=== PATIENT | male | born 1950 | race Caucasian/White ===

== ENCOUNTER 2017-08-14 14:43 | Inpatient (IN) | payer OTHER ==
[~2017-08-14] VITALS: Ht 170.2 cm; Wt 127.9 kg
[~2017-08-14 14:43] MED LIST: ALDACTONE25 MG PO; AMARYL2 MG PO; BREO ELLIPTA I1 EACH IH; COREG25 M1 PO; CRESTOR10 MG PO; GLIMEPIRIDE4 MG PO; LIPITOR20 MG PO; LISINOPRIL20 MG PO; LO-DOSE ASPIRIN81 M1 PO; METFORMIN HCL1000 MG PO; METOPROLOL TART50 MG PO; PIOGLITAZONE HC45 MG PO; ZESTRIL40 MG PO
[2017-08-14 17:06] LABS: BASOPHIL (%) 0.5 % (0-1); BASOPHIL COUNT 0.1 K/uL (0-0.1); EOSINOPHIL (%) 2.6 % (0-5); EOSINOPHIL COUNT 0.3 K/uL (0-0.3); HEMATOCRIT 44.3 % (38.0-50.0); HEMOGLOBIN 14.9 G/DL (12.5-16.6); IMMATURE GRANULOCYTE (%) 0.5 % (0.0-0.7); LYMPHOCYTE (%) 26.2 % (15-42); LYMPHOCYTE COUNT 2.6 K/uL (1.0-2.8); MCH 29.7 PG (29.0-34.0); MCHC 33.6 G/DL (30.0-36.0); MCV 88.4 FL (86-99); MONOCYTE (%) 8.3 % (3-12); MONOCYTE COUNT 0.8 K/uL (0-0.8); NEUTROPHIL (%) 61.9 % (45-76); PLATELET COUNT 191 K/uL (156-360); RBC DIS.WIDTH-CV 15.3 % (11.8-14.6); RBC DIS.WIDTH-SD 49.2 % (39-53); RED BLOOD COUNT 5.01 M/uL (4.00-5.50); WHITE BLOOD COUNT 9.8 K/uL (4.1-10.2)
[2017-08-14 17:13] LABS: ALBUMIN 3.9 g/dL (3.2-4.8)
[2017-08-14 17:14] LABS: CHLORIDE 105 mEq/L (99-109); POTASSIUM 5.1 mEq/L (3.7-5.4); SODIUM 140 mEq/L (136-147)
[2017-08-14 17:16] LABS: GLUCOSE 94 mg/dL (70-99); TOTAL PROTEIN 7.6 g/dL (6.4-8.3)
[2017-08-14 17:18] LABS: TOTAL BILIRUBIN 0.9 mg/dL (0.0-1.0)
[2017-08-14 17:19] LABS: ALKALINE PHOSPHATASE 44 IU/L (3-129)
[2017-08-14 17:20] LABS: CREATININE 1.5 mg/dL (0.6-1.3); GFR ESTIMATE (CALCULATED) 50 mL/min/ (58.99-99999)
[2017-08-14 17:21] LABS: AST (GOT) 30 IU/L (2-34); UREA NITROGEN (BUN) 31 mg/dL (9-23)
[2017-08-14 17:22] LABS: ALT (GPT) 29 IU/L (3-49)
[2017-08-14] MEDS ORDERED: ATORVASTATIN CA40 MG PO (22:08)
[2017-08-14] MEDS ORDERED: GLIMEPIRIDE2 MG PO (22:08)
[2017-08-14] MEDS ORDERED: CARVEDILOL25 MG PO (22:09)
[2017-08-14] MEDS ORDERED: LISINOPRIL40 MG PO (22:09)
[2017-08-14] MEDS ORDERED: SPIRONOLACTONE25 MG PO (22:09)
[2017-08-14] MEDS ORDERED: INCRUSE ELLI62.5 MCG IH (22:10)
[2017-08-14 23:23] VITALS: BP 130/76
[2017-08-15 00:41] LABS: COMMENTS - BLOOD GASES C+; DEVICE HFNC; O2 FLOW 10 L/MIN; PCO2 35 mm Hg (35-45); PO2 58 mm Hg (80-100); SITE RR; pH 7.42 (7.35-7.45)
[2017-08-15 00:42] LABS: BASE EXCESS -1.2 mEq/L (-3 to +3); BICARBONATE 22.7 mEq/L (22-26); CARBOXY HGB 1.4 % (0-5); METHEMOGLOBIN 1.7 % (0-1.5); O2 SATURATION (CALCULATED) 91.3 % (95-99)
[2017-08-15 04:36] VITALS: BP 115/56
[2017-08-15 07:55] VITALS: BP 110/69
[2017-08-15 08:53] LABS: CHLORIDE 103 MEQ/L (99-109); CREATININE 1.1 MG/DL (0.6-1.3); GFR ESTIMATE (CALCULATED) > 59 mL/min/ (58.99-99999); GLUCOSE 94 mg/dL (70-99); SODIUM 138 MEQ/L (136-147); UREA NITROGEN (BUN) 25 mg/dL (9-23)
[2017-08-15 13:12] VITALS: BP 116/58
[2017-08-15 16:15] VITALS: BP 131/78
[2017-08-15 19:37] VITALS: BP 118/73
[2017-08-16 00:01] VITALS: BP 90/44
[2017-08-16 09:07] VITALS: BP 107/52
[2017-08-16 10:30] LABS: BASE EXCESS -2.9 mEq/L (-3 to +3); CARBOXY HGB 1.6 % (0-5); METHEMOGLOBIN 0.5 % (0-1.5); PCO2 38 mm Hg (35-45); PO2 49 mm Hg (80-100); pH 7.37 (7.35-7.45)
[2017-08-16 10:31] LABS: COMMENTS - BLOOD GASES A+C+; DEVICE NCH; O2 FLOW 6 L/MIN; SITE RR; TOTAL RESP RATE 20 resp/min
[2017-08-16 10:55] LABS: HEMATOCRIT 42.7 % (38.0-50.0); HEMOGLOBIN 14.2 G/DL (12.5-16.6); MCH 29.3 PG (29.0-34.0); MCHC 33.3 G/DL (30.0-36.0); PLATELET COUNT 169 K/uL (156-360); RBC DIS.WIDTH-CV 15.7 % (11.8-14.6); RBC DIS.WIDTH-SD 50.4 % (39-53); RED BLOOD COUNT 4.85 M/uL (4.00-5.50); WHITE BLOOD COUNT 7.4 K/uL (4.1-10.2)
[2017-08-16 11:09] LABS: D-DIMER ELISA < 150.00 ng/mLDDU (<230)
[2017-08-16 11:17] LABS: TROP-I INTERPRETATION NEGATIVE; TROPONIN-I 0.01 ng/mL (0.0-0.30)
[2017-08-16 11:30] LABS: CHLORIDE 105 MEQ/L (99-109); CREATININE 1.3 MG/DL (0.6-1.3); GFR ESTIMATE (CALCULATED) 59 mL/min/ (58.99-99999); POTASSIUM 5.2 MEQ/L (3.7-5.4); SODIUM 133 MEQ/L (136-147); UREA NITROGEN (BUN) 30 mg/dL (9-23)
[2017-08-16 11:31] LABS: GLUCOSE 188 mg/dL (70-99)
[2017-08-16 11:34] VITALS: BP 118/56
[2017-08-16 13:59] LABS: HEMOGLOBIN A1c (GLYCOHEMOGLOB) 6.1 % (Below 5.7)
[2017-08-16 14:58] VITALS: BP 127/59
[2017-08-16 17:52] LABS: TROP-I INTERPRETATION NEGATIVE; TROPONIN-I < 0.01 ng/mL (0.0-0.30)
[2017-08-16 19:54] VITALS: BP 126/60
[2017-08-16 23:35] LABS: TROP-I INTERPRETATION NEGATIVE; TROPONIN-I < 0.01 ng/mL (0.0-0.30)
[2017-08-17] VITALS (7 sets, daily range): BP systolic 105–137; BP diastolic 54–82
[2017-08-17 05:16] LABS: BASOPHIL (%) 0.1 % (0-1); EOSINOPHIL (%) 0 % (0-5); HEMATOCRIT 40.5 % (38.0-50.0); HEMOGLOBIN 13.7 G/DL (12.5-16.6); IMMATURE GRANULOCYTE (%) 0.8 % (0.0-0.7); LYMPHOCYTE (%) 15.9 % (15-42); LYMPHOCYTE COUNT 1.2 K/uL (1.0-2.8); MCH 29.5 PG (29.0-34.0); MCHC 33.8 G/DL (30.0-36.0); MCV 87.1 FL (86-99); MONOCYTE (%) 0.7 % (3-12); MONOCYTE COUNT 0.1 K/uL (0-0.8); NEUTROPHIL (%) 82.5 % (45-76); NEUTROPHIL COUNT 6.3 K/uL (1.8-6.4); PLATELET COUNT 167 K/uL (156-360); RBC DIS.WIDTH-CV 15.3 % (11.8-14.6); RBC DIS.WIDTH-SD 48.8 % (39-53); RED BLOOD COUNT 4.65 M/uL (4.00-5.50); WHITE BLOOD COUNT 7.7 K/uL (4.1-10.2)
[2017-08-17 05:54] LABS: ALBUMIN 3.7 G/DL (3.2-4.8); ALKALINE PHOSPHATASE 34 IU/L (3-129); ALT (GPT) 22 IU/L (3-49); AST (GOT) 20 IU/L (2-34); CHLORIDE 101 MEQ/L (99-109); CREATININE 1.3 MG/DL (0.6-1.3); GFR ESTIMATE (CALCULATED) 59 mL/min/ (58.99-99999); GLUCOSE 211 mg/dL (70-99); POTASSIUM 5.5 MEQ/L (3.7-5.4); SODIUM 132 MEQ/L (136-147); TOTAL BILIRUBIN 0.7 MG/DL (0.0-1.0); TOTAL PROTEIN 6.7 G/DL (6.4-8.3); UREA NITROGEN (BUN) 34 mg/dL (9-23)
[2017-08-18 04:05] VITALS: BP 132/77
[2017-08-18 07:57] VITALS: BP 142/67
[2017-08-18 12:00] VITALS: BP 123/72
[2017-08-18 12:33] LABS: ALBUMIN 3.8 G/DL (3.2-4.8); ALKALINE PHOSPHATASE 31 IU/L (3-129); ALT (GPT) 25 IU/L (3-49); AST (GOT) 22 IU/L (2-34); CHLORIDE 100 MEQ/L (99-109); CREATININE 1.1 MG/DL (0.6-1.3); GFR ESTIMATE (CALCULATED) > 59 mL/min/ (58.99-99999); GLUCOSE 209 mg/dL (70-99); POTASSIUM 4.5 MEQ/L (3.7-5.4); SODIUM 135 MEQ/L (136-147); TOTAL PROTEIN 7.4 G/DL (6.4-8.3); UREA NITROGEN (BUN) 33 mg/dL (9-23)
[2017-08-18 12:34] LABS: TOTAL BILIRUBIN 0.5 MG/DL (0.0-1.0)
[2017-08-18 17:32] VITALS: BP 142/69
[2017-08-18 19:30] VITALS: BP 119/73
[2017-08-19] VITALS (7 sets, daily range): BP systolic 116–152; BP diastolic 65–71
[2017-08-19 05:15] LABS: BASOPHIL (%) 0.1 % (0-1); EOSINOPHIL (%) 0 % (0-5); HEMATOCRIT 40.1 % (38.0-50.0); HEMOGLOBIN 13.5 G/DL (12.5-16.6); IMMATURE GRANULOCYTE (%) 0.8 % (0.0-0.7); LYMPHOCYTE (%) 10.7 % (15-42); LYMPHOCYTE COUNT 1.2 K/uL (1.0-2.8); MCH 29.3 PG (29.0-34.0); MCHC 33.7 G/DL (30.0-36.0); MCV 87.2 FL (86-99); MONOCYTE (%) 3.8 % (3-12); MONOCYTE COUNT 0.4 K/uL (0-0.8); NEUTROPHIL (%) 84.6 % (45-76); NEUTROPHIL COUNT 9.8 K/uL (1.8-6.4); PLATELET COUNT 185 K/uL (156-360); RBC DIS.WIDTH-CV 15.1 % (11.8-14.6); RBC DIS.WIDTH-SD 48.1 % (39-53); WHITE BLOOD COUNT 11.6 K/uL (4.1-10.2)
[2017-08-19 05:58] LABS: CHLORIDE 101 MEQ/L (99-109); CREATININE 1.1 MG/DL (0.6-1.3); GFR ESTIMATE (CALCULATED) > 59 mL/min/ (58.99-99999); GLUCOSE 245 mg/dL (70-99); POTASSIUM 4.5 MEQ/L (3.7-5.4); SODIUM 134 MEQ/L (136-147); UREA NITROGEN (BUN) 37 mg/dL (9-23)
[2017-08-19 08:49] LABS: CREATINE KINASE 93 IU/L (1-294)
[2017-08-20] VITALS (8 sets, daily range): BP systolic 110–140; BP diastolic 61–77
[2017-08-20 05:17] LABS: HEMATOCRIT 43.3 % (38.0-50.0); HEMOGLOBIN 14.4 G/DL (12.5-16.6); MCH 29.1 PG (29.0-34.0); MCHC 33.3 G/DL (30.0-36.0); MCV 87.7 FL (86-99); PLATELET COUNT 190 K/uL (156-360); RBC DIS.WIDTH-SD 47.8 % (39-53); RED BLOOD COUNT 4.94 M/uL (4.00-5.50); WHITE BLOOD COUNT 11.4 K/uL (4.1-10.2)
[2017-08-20 05:52] LABS: CHLORIDE 99 MEQ/L (99-109); CREATININE 1.3 MG/DL (0.6-1.3); GFR ESTIMATE (CALCULATED) 59 mL/min/ (58.99-99999); GLUCOSE 199 mg/dL (70-99); POTASSIUM 4.4 MEQ/L (3.7-5.4); SODIUM 136 MEQ/L (136-147); UREA NITROGEN (BUN) 38 mg/dL (9-23)
[2017-08-21] VITALS (7 sets, daily range): BP systolic 110–131; BP diastolic 55–60
[2017-08-22 05:12] LABS: HEMATOCRIT 42.4 % (38.0-50.0); HEMOGLOBIN 14.3 G/DL (12.5-16.6); MCH 29.2 PG (29.0-34.0); MCHC 33.7 G/DL (30.0-36.0); MCV 86.7 FL (86-99); PLATELET COUNT 185 K/uL (156-360); RED BLOOD COUNT 4.89 M/uL (4.00-5.50); WHITE BLOOD COUNT 12.1 K/uL (4.1-10.2)
[2017-08-22 05:17] VITALS: BP 101/55
[2017-08-22 05:46] LABS: CHLORIDE 101 MEQ/L (99-109); CREATININE 1.3 MG/DL (0.6-1.3); GFR ESTIMATE (CALCULATED) 59 mL/min/ (58.99-99999); GLUCOSE 136 mg/dL (70-99); MAGNESIUM 1.9 mg/dl (1.3-2.7); POTASSIUM 4.6 MEQ/L (3.7-5.4); SODIUM 137 MEQ/L (136-147); UREA NITROGEN (BUN) 41 mg/dL (9-23)
[2017-08-22 07:24] VITALS: BP 102/51
[2017-08-22 12:22] VITALS: BP 105/54
[2017-08-22] MEDS ORDERED: DUONEB 2.5-0.5 M3 ML AEROSOL (13:45)
[2017-08-22] MEDS ORDERED: PREDNISONE20 MG PO (13:47)
[2017-08-22] MEDS ORDERED: FUROSEMIDE20 MG PO (13:47)
== END 2017-08-22 16:54 | DRG 189 ==
LOC: EME 14:43 → 4SOUTH 21:53 → EDOF 21:53 → ENRESERV 21:55 → 4SOUTH 23:08 → 4EAST 08-16 09:31 → ENRESERV 08-16 09:37 → 4EAST 08-16 11:15
PROVIDERS: Emergency Medicine; Hospitalist; Internal Medicine; Physician Assistant Medical; Student in an Organized Health Care Education/Training Program
PROC: 5A09357 Assistance with Respiratory Ventilation, Less than 24 Consecutive Hours, Continuous Positive Airway Pressure (ICD-10-PCS; principal; 2017-08-15)
DX: J96.21 Acute and chronic respiratory failure with hypoxia (principal); J81.0 Acute pulmonary edema; J44.0 Chronic obstructive pulmonary disease with (acute) lower respiratory infection; I42.9 Cardiomyopathy, unspecified; N17.9 Acute kidney failure, unspecified; I50.22 Chronic systolic (congestive) heart failure; J44.1 Chronic obstructive pulmonary disease with (acute) exacerbation; Z68.42 Body mass index [BMI] 45.0-49.9, adult; X50.0XXA Overexertion from strenuous movement or load, initial encounter; G57.21 Lesion of femoral nerve, right lower limb; G47.33 Obstructive sleep apnea (adult) (pediatric); E66.01 Morbid (severe) obesity due to excess calories; I25.10 Atherosclerotic heart disease of native coronary artery without angina pectoris; T38.0X5A Adverse effect of glucocorticoids and synthetic analogues, initial encounter; E11.65 Type 2 diabetes mellitus with hyperglycemia; E78.5 Hyperlipidemia, unspecified; E87.5 Hyperkalemia; G89.29 Other chronic pain; I11.0 Hypertensive heart disease with heart failure; I27.20 Pulmonary hypertension, unspecified; R29.6 Repeated falls; I44.7 Left bundle-branch block, unspecified; M48.04 Spinal stenosis, thoracic region; M47.26 Other spondylosis with radiculopathy, lumbar region; M51.24 Other intervertebral disc displacement, thoracic region; S80.211A Abrasion, right knee, initial encounter; S80.212A Abrasion, left knee, initial encounter; Y93.01 Activity, walking, marching and hiking; J20.9 Acute bronchitis, unspecified; E11.42 Type 2 diabetes mellitus with diabetic polyneuropathy; M19.90 Unspecified osteoarthritis, unspecified site; Z99.81 Dependence on supplemental oxygen; Z87.891 Personal history of nicotine dependence; Z79.51 Long term (current) use of inhaled steroids; Z79.84 Long term (current) use of oral hypoglycemic drugs; Z79.82 Long term (current) use of aspirin; I25.2 Old myocardial infarction; Z99.89 Dependence on other enabling machines and devices
CPT/HCPCS: 36600; 70450; 70551; 71045; 72100; 72146; 72148; 80048; 80053; 81003; 82550; 82803; 82948; 83036; 83735; 83880; 84484; 85025; 85027; 85379; 93005; 93306; 94010; 94640; 94640 76; 94660; 94760; 94799; 97530 GO; 99202; 99281; 99285; A6260; G0378; J1650; J1815; J2920; J7512